=== PATIENT | male | born 1970 | race Caucasian/White ===

== ENCOUNTER 2016-04-08 17:34 | Emergency (ER) | payer BC ==
[2016-04-08] MEDS ORDERED: ASPIRIN 81 MG CHEW TAB ONE (17:45)
== END 2016-04-08 19:08 | disposition home or self-care (01) ==
LOC: ER 17:34
CPT/HCPCS: 36415; 71010; 80053; 82550; 83735; 84484; 85025; 85610; 85730; 93005